=== PATIENT | female | born 1995 | race African-American/Black ===

== ENCOUNTER 2018-06-19 18:45 | Emergency (ER) | payer OTHER ==
[~2018-06-19] VITALS: Ht 160 cm; Wt 81.7 kg
[~2018-06-19 18:45] MED LIST: ACCUNEB SO1.25 MG/1; BENADRYL25 MG PO; MEDROLDOSEPACK PO; ZOFRAN ODT4 MG PO
[2018-06-19 19:03] VITALS: BP 128/46
[2018-06-19] MEDS ORDERED: VENTOLIN HFA 1818 GM INH (19:07)
[2018-06-19] MEDS ORDERED: NEOMYC-POLYM-DEX5 ML OPHTHALMIC (20:56)
== END 2018-06-19 20:45 | disposition left against medical advice (07) ==
LOC: ER 18:45
DX: H00.014 Hordeolum externum left upper eyelid (principal); J45.909 Unspecified asthma, uncomplicated; Z91.012 Allergy to eggs; Z91.010 Allergy to peanuts; Z91.013 Allergy to seafood

== ENCOUNTER 2019-09-19 12:08 | Emergency (ER) | payer OTHER ==
[~2019-09-19] VITALS: Ht 160 cm; Wt 98.0 kg
[~2019-09-19 12:08] MED LIST changes: +NEOMYC-POLYM-DEX5 ML OPHTHALMIC; +VENTOLIN HFA 1818 GM INH
[2019-09-19 13:07] VITALS: BP 104/66
== END 2019-09-19 13:08 | disposition home or self-care (01) ==
LOC: ER 12:08
DX: B34.9 Viral infection, unspecified (principal); J02.9 Acute pharyngitis, unspecified; J45.909 Unspecified asthma, uncomplicated; Z79.899 Other long term (current) drug therapy; Z91.012 Allergy to eggs; Z91.010 Allergy to peanuts; Z91.013 Allergy to seafood